=== PATIENT | male | born 1965 | race Caucasian/White ===

== ENCOUNTER 2016-07-03 05:45 | Day surgery (SDC) | payer BC, OTHER ==
[2016-07-03] MEDS ORDERED: Buffered Lidocaine 1% SYR 3ML* 3 ML/SYR SYRINGE INTRADERM ONE (06:00)
[2016-07-03] MEDS ORDERED: Dexamethasone IV* 4 MG/ML 1 ML (4 MG) IV SLOW PU ONE (06:00)
[2016-07-03] MEDS ORDERED: Famotidine IV* 10 MG/ML 2 ML (20 mg) IV ONE (06:00)
[2016-07-03] MEDS ORDERED: Dexamethasone IV* 4 MG/ML 1 ML (4 MG) ONE (06:20)
[2016-07-03] MEDS ORDERED: Famotidine IV* 10 MG/ML 2 ML (20 mg) ONE (06:20)
[2016-07-03] MEDS ORDERED: ceFAZolin 2 GM PREMIX (*) 2 GM/50 ML BAG IVPB ONE (06:20)
[2016-07-03] MEDS ORDERED: Atracurium* 10 MG/ML 10 ML VIAL ONE ×2 (06:29→07:15)
[2016-07-03] MEDS ORDERED: Succinylcholine* 20 MG/ML 10 ML VIAL ONE (06:29)
[2016-07-03] MEDS ORDERED: Bupivacaine 0.5% W/EPI SDV* 30 ML VIAL ONE (07:09)
[2016-07-03] MEDS ORDERED: EPINEPHrine AMP 1 MG/ML ONE (07:09)
[2016-07-03] MEDS ORDERED: fentaNYL* 50 MCG/ML 5 ML VIAL (250 MCG VIAL) ONE (07:14)
[2016-07-03] MEDS ORDERED: Ondansetron INJ* 2 MG/ML VIAL ONE (07:15)
[2016-07-03] MEDS ORDERED: Propofol* 10 MG/ML 20 ML BTL IV PUSH ONE (07:15)
[2016-07-03] MEDS ORDERED: ROPIVACAINE 5 MG/ML 30 ML BTL (0.5%) ONE (07:15)
[2016-07-03] MEDS ORDERED: Midazolam* 1 MG/ML 5 ML VIAL (5 MG) ONE (07:15)
[2016-07-03] MEDS ORDERED: Ketorolac INJ* 30 MG/ML 1 ML VIAL ONE (07:15)
[2016-07-03] MEDS ORDERED: fentaNYL* 50 MCG/ML 2 ML VIAL (100 MCG VIAL) ONE ×5 (08:08→12:12)
[2016-07-03] MEDS ORDERED: Desflurane* 240 ML INH ONE (08:42)
[2016-07-03] MEDS ORDERED: hydrALAZINE IV* 20 MG/ML VIAL ONE (09:02)
[2016-07-03] MEDS ORDERED: Metoprolol Tartrate IV* 1 MG/ML 5 ML VIAL ONE (09:02)
[2016-07-03] MEDS ORDERED: Levalbuterol HFA INHALER* 1 PUFF MDI ONE (09:03)
[2016-07-03] MEDS ORDERED: Phenylephrine INJ* 10 MG/ML 1 ML VIAL (10 MG) ONE (09:16)
[2016-07-03] MEDS ORDERED: Lidocaine 2% PF * 5 ML VIAL ONE (09:49)
[2016-07-03] MEDS ORDERED: DiMENhydriNATE IV* 50 MG/ML VIAL IV PUSH PRN (10:06)
[2016-07-03] MEDS ORDERED: Ondansetron INJ* 2 MG/ML VIAL IV PRN (10:06)
[2016-07-03] MEDS ORDERED: HYDROmorphone INJ* 1 MG/ML CARPUJECT SYRINGE IV PRN (10:06)
[2016-07-03] MEDS: fentaNYL* 50 MCG/ML 2 ML VIAL (100 MCG VIAL) IV PRN ×2 (12:13→12:32)
[2016-07-03] MEDS ORDERED: oxyCODONE/Acetamin 5/325 MG* TAB ONE ×2 (12:24)
[2016-07-03] MEDS: oxyCODONE/Acetamin 5/325 MG* TAB PO PRN ×2 (12:26→12:28)
[2016-07-03 13:53] VITALS: BP 146/95
--- NOTE | 2016-07-05 21:40 | OP ---
OPERATIVE NOTE: DATE OF OPERATION: 07/03/16 DATE OF : 69 SURGEON: Adrián Louis MD ELECTRIC MOTOR REPAIRMAN: ELSA Jessica ANESTHESIOLOGIST: Dr. Obi Tsang. ANESTHESIA: Regional anesthesia, general anesthesia, local anesthesia. PRE-OP DIAGNOSES: 1. Right chronic retracted full width and thickness subscapularis rotator cuff tendon repair. 2. Right shoulder chronically subluxed proximal biceps tendon. 3. Recent right AC joint sprain, subacromial bursitis. POST-OP DIAGNOSES: 1. Right chronic retracted full width and thickness subscapularis rotator cuff tendon repair. 2. Right shoulder chronically subluxed proximal biceps tendon. 3. Recent right AC joint sprain, subacromial bursitis. 4. Right shoulder capsulitis OPERATIVE PROCEDURES: 1. Right shoulder examination under anesthesia. 2. Right shoulder manipulation under anesthesia. 3. Open rotator cuff repair, chronic, retracted full thickness subscapularis. 4. Open proximal biceps tenodesis, right. 5. Right shoulder arthroscopic proximal biceps tendon release. 6. Right shoulder arthroscopic debridement, rotator interval tissue, subacromial bursitis tissue. 7. Right shoulder arthroscopic evaluation of AC joint and acromion. IV FLUIDS: See Anesthesia note. ANTIBIOSIS: 2 g Ancef IV. COMPLICATIONS: None. ESTIMATED BLOOD LOSS: Minimal. SPECIMEN: None. IMPLANTS: Mitek helix 4.5 mm double loaded suture anchors x3. Arthrex unicortical proximal biceps tenodesis button x1. 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 The patient was injured on 03/13/16 at work. He stepped on a grating, which collapsed underneath him. The patient fell down and his right shoulder was yanked into hyperabduction. The patient felt and heard a pop. He went to the emergency department because of significant pain and weakness in the right shoulder. He was unable to work because of this. When I first saw the patient in the office on April 30, he was in significant pain , barely able to move his shoulder in any direction, and describing significant stabbing anterior pain as though something were "rolling back and forth" along the front of his shoulder causing an occasional jolt of pain. The patient is a diabetic, who occasionally smokes cigars. The patient is on chronic narcotics for left upper extremity pain and dysesthesias secondary to an intramuscular shot of cortisone in the left upper arm. The patient takes Opana 30 mg twice a day and oxycodone 15 mg every 4 to 6 hours as needed for pain. At that first clinic visit, the patient was very angry discussing that left upper extremity complication. The patient at first had some neck and head pain that resolved mostly through our visits and was addressed by Dr. Sullivan. The patient's exam showed positive subacromial impingement signs. Significant pain and weakness with subscapularis strength testing. He had some pain, but no weakness with supraspinatus stress testing and no external rotator stress testing, pain or weakness. Positive Speeds. Positive Oceana's. Extreme tenderness to palpation of proximal biceps and AC joint minimal tenderness to palpation at the last clinic visit. Over his clinic visits with me, which were needed for the workers' compensation claim to be approved and for the patient to be prepared for surgery, the patient's neck exam normalized and he regained range of motion of the shoulder to 160 degrees forward flexion, 70 degrees of external, and 20 degrees of internal range of motion. MRA of the right shoulder showed a full thickness retracted subscapularis tear with significant subluxation of the biceps long head. There was also AC joint ligamentous injury to the superior and inferior aspect of the ligaments of the AC joint. AC joint narrowing and distal clavicle hypertrophy were visible on x-ray. The patient opted for surgical management. As the patient essentially had a low-grade AC joint sprain, I decided that my default would be not to do a distal clavicle resection and treat it as I would with an isolated low- grade AC joint sprain in the office. I decided that I would arthroscope the patient's shoulder in beach-chair position, determine if any other rotator cuff repairs were evident, confirmed the subscapularis rotator cuff tendon tear, and cut the biceps and do any necessary debridements prior to open repair of his chronic retracted tear. DESCRIPTION OF PROCEDURE: Preoperative written consent was obtained. Operative extremity was marked in preoperative holding. The patient was taken back to the operating room and placed supine on operating room table. Dr. Tsang performed a regional interscalene anesthetic block, right upper extremity. The patient was then intubated. The patient was placed into a beach -chair position. The back rest of the table was held back. Examination under anesthesia demonstrated only 140 degrees of passive forward flexion as well as less than 80 degrees of internal and external rotation. A manipulation under anesthesia was performed carefully, producing a few palpable pops and accomplishing 160 degrees of forward flexion, 90 degrees of external rotation and 70 degrees of internal rotation. The right shoulder was prepped and draped. Surgical time-out was performed. 20 cc of normal saline was injected with spinal needle into the posterior glenohumeral joint. Posterior glenohumeral joint portal was then established using standard technique. Diagnostic arthroscopy was commenced. No articular cartilage lesions on the glenoid or humeral head were appreciated. There was some fraying of the superior labrum, but no clear tear or tendinosis of the biceps tendon itself. However, the biceps tendon was significantly displaced medially. No infraspinatus or supraspinatus rotator cuff tear was evident. However, there was clearly evident a full width, full thickness subscapularis rotator cuff tendon tear with significant medial retraction. I established an anterior glenohumeral joint portal under direct visualization. A shaver was introduced. It was used to debride scar tissue in the rotator interval and free up on the posterior undersurface of the subscapularis rotator cuff tendon tear. I also debrided the superior labrum slightly. I then brought an arthroscopic scissors and cut the biceps near its origin. Scope and fluid were removed from the glenohumeral joint. I then entered the subacromial space from posterior and anterior. Lateral subacromial portal was established under direct visualization. I encountered much bursitic tissue in the subacromial space and debrided with an arthroscopic shaver. No clear subacromial decompression or distal clavicle resection was indicated because there were no clear inferior abutting bony prominences. Fluid and instruments were removed from the subacromial space. That concluded the arthroscopic component of the procedure. The 3 arthroscopy skin incisions were closed with figure-of-8 stitches using nylon 4-0 suture. A back rest was then placed on the posterior element of the table. Of note, the right arm was the whole case in a spider arm madrigal. Anterior deltopectoral approach was then marked. The skin from the level of the coracoid process to the level of the anterior humerus just proximal to the deltoid insertion laterally. Skin was incised with a #10 blade. I continued dissection through subcutaneous tissue with spreading dissection with scissors. I identified the deltopectoral interval with its fat stripe and cephalic vein. The cephalic vein wanted to go lateral. A small bridging vein was tied off with a suture and then Bovie to allow spreading of the deltopectoral interval. Conjoined tendon was visualized. Lateral to that was clavipectoral fascia well identified. The shoulder was fully abducted and digitally, the subdeltoid adhesions and subacromial adhesions were released. A brown deltoid retractor was placed. Scissors were used to incise the clavipectoral fascia and identified the underlying retracted subscapularis tendon tear. A traction stitch was placed, several of them in the subscapularis digitally and with spreading dissection, some adhesions were released from the subscapularis, posterior, anterior, and superior. A finger Baldwin appendix retractor was used at times around the lateral most aspect of the conjoined tendon superiorly, well far away from the musculocutaneous nerve. This pressure was light and was not constant and was not always there during the procedure. The entire uncovered footprint on the humerus of the subscapularis was identified. It was debrided with a rongeur and curette and a then alayna was used to get good prepared bone for the repair. Next, three Mitek helix double-loaded 4.5 mm anchors were placed, two of them more medial and one more superolateral taking up the full extent of the footprint. Horizontal mattress stitches were placed using a free needle in the sutures and the anchors. These were tied. The traction stitches were then tied to some fascia about the bicipital groove and the supraspinatus fascia just lateral to that. It should be noted that before this repair was effected, the biceps long head had been brought inferiorly in the wound. Repair was noted to be snug, but well fixed. It was a little bit loose around the medial inferior aspect, so that was supplemented with additional permanent stitches along the inferior aspect from the tendon to the bicipital groove fascia. I did not stress test this repair more than 10 degrees past the neutral rotation with the plan postoperatively for the patient not to go beyond neutral. The biceps tendon was then tenodesed in the bicipital groove just superior to the pectoralis tendon. This was done with an Arthrex proximal tenodesis unicortical button using standard technique. Irrigation. Closure of the deltopectoral interval with a running trail of Crumb's stitch using an Ethibond 0 suture. Closure of the subcutaneous tissue with Vicryl 3-0 suture buried simple stitches. Closure of the subcuticular layer with a running stitch using Monocryl 4- 0 suture. A Xeroform followed by 4x4s followed by Tegaderm were placed over the anterior incision. Xeroform followed by 4x4s followed by ABDs followed by foam tape were placed over the arthroscopic incisions and the open incisions. The patient was placed in a sling. An abduction pillow was added to this in the recovery room. The patient was sedated and extubated and brought to the PACU. DISPOSITION: The patient in addition to his routine pain medication regimen will take oxycodone for breakthrough pain, aspirin for DVT prophylaxis, and Keflex for 7 days for infection prophylaxis. The patient was given strict instructions without no external rotation of that shoulder beyond neutral. The patient is to be in the sling at all times except for once a day to come out and move his elbow, wrist, and fingers. I called the patient 2 days postoperatively to confirm that his pain was adequate and he was neurovascularly intact distally without any numbness or paresthesias and the ability present to flex the elbow. I will see the patient 10 to 14 days postoperatively. [id number]/[facility] #: [id number] [facility]ALS[facility]
== END 2016-07-03 13:49 | disposition home or self-care (01) ==
LOC: OR 05:45
PROVIDERS: ATTEND Orthopaedic Surgery
DX: M75.121 Complete rotator cuff tear or rupture of right shoulder, not specified as traumatic (principal); M67.813 Other specified disorders of tendon, right shoulder; M75.01 Adhesive capsulitis of right shoulder; E11.8 Type 2 diabetes mellitus with unspecified complications; Z79.84 Long term (current) use of oral hypoglycemic drugs
CPT/HCPCS: A9270-GY; C1776; J0171; J0330; J0360; J0690; J1100; J1885; J2250; J2405; J2704; J2795; J3010; J3490

== ENCOUNTER 2019-05-09 09:31 | Day surgery (SDC) | payer BC ==
[~2019-05-09 09:31] MED LIST: Acetaminophen TAB* 325 MG PO PRN; Buffered Lidocaine 1% SYRIN* 1 ML/SYRINGE INTRADERM ONE; Trypan Blue 0.06% SOL* 0.5 ML BTL ONE
[2019-05-09] MEDS ORDERED: fentaNYL* 50 MCG/ML 2 ML VIAL (100 MCG VIAL) ONE ×2 (09:53→16:22)
[2019-05-09] MEDS ORDERED: Midazolam* 1 MG/ML 5 ML VIAL (5 MG) ONE ×2 (09:53→16:22)
[2019-05-09 11:14] VITALS: BP 114/69
[2019-05-09] MEDS ORDERED: KETAMINE HCL* 50 MG/ML 10 ML VIAL ONE (16:22)
[2019-05-09] MEDS ORDERED: Acetaminophen IV 1GM/100ML * 100 ML ONE (19:22)
[2019-05-09] MEDS ORDERED: Propofol* 500 MG/50 ML BTL ONE (19:22)
[2019-05-09] MEDS ORDERED: Lidocaine 2% PF * 5 ML VIAL ONE (19:23)
[2019-05-09] MEDS ORDERED: Ketorolac INJ* 30 MG/ML 1 ML VIAL ONE (19:23)
--- NOTE | 2019-05-09 21:37 | OP ---
DATE OF OPERATION: 05/09/19 [facility] DATE OF : 69 SURGEON: Dr. Praveen Thomason COMPLIANCE ENGINEER PRODUCTS: None. ANESTHESIA: Topical with intravenous sedation. PRE-OP DIAGNOSIS: Cataract, right eye. POST-OP DIAGNOSIS: Cataract, right eye. OPERATIVE PROCEDURE: Phacoemulsification and cataract extraction with posterior chamber intraocular lens implant, right eye. COMPLICATIONS: None. BLOOD LOSS: None. DESCRIPTION OF PROCEDURE: The patient was brought to the operating room and received a small amount of intravenous sedation. A drop of Tetracaine was placed in the patient's right eye. The patient was prepped and draped in the usual sterile fashion for ophthalmic surgery and attention was directed to the right eye where a speculum was placed. A paracentesis was created at the 11 o' clock position and 0.1 cc of 1 percent preservative-free Lidocaine was injected into the anterior chamber followed by DisCoVisc. The eye was digitally stabilized while a 2.75 mm keratome was used to create a triplanar clear corneal incision at the 9 o'clock position. A continuous curvilinear capsulorrhexis was created with a cystotome and Utrata forceps. BSS on a cannula was used to hydrodissect the lens from the capsule. Phacoemulsification was performed in a acafjr-ygy-[id number] technique to create four fragments which were removed. Residual cortical material was removed with irrigation and aspiration. DisCoVisc was used to inflate the capsular bag and an AU00T0 23.0 diopter lens was folded and inserted into the capsular bag. DisCoVisc was removed using irrigation and aspiration. BSS on a cannula was used to hydrate the corneal stroma and seal the wound. At the end of the case the pupil was round and the lens was centered. The eye was of normal pressure and the wound was water tight. The speculum was removed and topical Maxitrol ointment was placed on the surface of the eye. The eye was closed, patched and shielded and the patient was sent to the recovery room in stable condition with post operative instructions and follow-up appointment given. [id number]/[facility] #: [id number] TARA
== END 2019-05-09 11:03 | disposition home or self-care (01) ==
LOC: OREAST 09:31
PROVIDERS: ATTEND Ophthalmology
DX: H25.041 Posterior subcapsular polar age-related cataract, right eye (principal); E11.9 Type 2 diabetes mellitus without complications; Z79.4 Long term (current) use of insulin; Z79.84 Long term (current) use of oral hypoglycemic drugs; I10 Essential (primary) hypertension
CPT/HCPCS: J1885; J2250; J2704; J3010; V2632

== ENCOUNTER 2019-05-30 06:18 | Day surgery (SDC) | payer BC ==
[~2019-05-30 06:18] MED LIST changes: -Trypan Blue 0.06% SOL* 0.5 ML BTL ONE
[2019-05-30] MEDS ORDERED: fentaNYL* 50 MCG/ML 2 ML VIAL (100 MCG VIAL) ONE (07:17)
[2019-05-30] MEDS ORDERED: Midazolam* 1 MG/ML 5 ML VIAL (5 MG) ONE (07:17)
[2019-05-30] MEDS ORDERED: Ketorolac 0.5% OPHTH (NF) 0.5 % 5 ML BTL ONE (07:51)
[2019-05-30] MEDS ORDERED: Lidocaine 1% MPF ** 5 ML VIAL ONE (07:51)
[2019-05-30] MEDS ORDERED: Cyclopentolate 1% OPTH.SOL* 2 ML BTL ONE (07:51)
[2019-05-30] MEDS ORDERED: Tropicamide 1% OPTH.SOL* BTL ONE (07:51)
[2019-05-30] MEDS ORDERED: Phenylephrine OPHTH SOL 2.5%* 2 ML ONE (07:51)
[2019-05-30] MEDS ORDERED: Neomycin/Polymy/Dex OPHTH.OIN* 3.5 GM ONE (07:51)
[2019-05-30] MEDS ORDERED: Tetracaine 0.5% OPTH.SOL 4 ML* 1 DROP BTL ONE (07:51)
[2019-05-30] MEDS ORDERED: Midazolam* 1 MG/ML 2 ML VIAL (2 MG) ONE (07:59)
[2019-05-30 08:38] VITALS: BP 133/72
--- NOTE | 2019-05-30 10:26 | OP ---
DATE OF OPERATION: 05/30/19 - [facility] DATE OF : 69 SURGEON: Praveen Thomason MD BINDER SORTER: None. ANESTHESIA: Topical with intravenous sedation. PRE-OP DIAGNOSIS: Dense cataract small pupil left eye. POST-OP DIAGNOSIS: Dense cataract small pupil left eye. OPERATIVE PROCEDURE: Phacoemulsification and cataract extraction with posterior chamber intraocular lens implant and anterior vitrectomy left eye. COMPLICATIONS: Capsular tear. BLOOD LOSS: None. DESCRIPTION OF PROCEDURE: The patient was brought to the operating room and received intravenous sedation. A drop of Tetracaine was placed into the patient 's left eye. The patient was prepped and draped in the usual sterile fashion for ophthalmic surgery and attention was directed to the left eye where a speculum was placed. The pupil was noted to be approximately 4.5 mm in diameter , so Omidria was added tot the irrigating solution. A paracentesis was created at the 5 o'clock position and 0.1 cc of 1% preservative-free lidocaine was injected via anterior chamber followed by DisCoVisc. The eye was digitally stabilized with 2.75 mm keratome was used to create a triplanar clear corneal incision at the 3 o'clock position. A continuous curvilinear capsulorrhexis was created with a cystotome and Utrata forceps. Using Viscoat dilation we were able to achieve a rhexis of approximately 5 mm in diameter. BSS on a cannula was used to hydrodissect the lens from the capsule. Phacoemulsification was performed in a divide and conquer technique to remove to create 4 fragments, which were removed. It was noted that a significant capsular tear had occurred in the nasal aspect of the posterior capsule. Fortunately, there was no cortical material to remove as this cataract was quite dense. DisCoVisc was used to tamponade, the vitreous and instruments were drawn from the eye. A second paracentesis was created at the 1 o'clock position. A bimanual anterior vitrectomy instrument was inserted into the anterior chamber and a vitrectomy was performed to remove any possible vitreous that had come through the capsular tear and along the base of the capsular tear. Once satisfied that there was no vitreous present, the vitrector was removed and more DisCoVisc was placed into the eye. It was felt that the posterior capsule had an opening too large to safely support a posterior chamber ocular lens. Thus an MC60AC 3-piece lens, 23 diopters in power, was chosen. This lens was folded outside the eye and atraumatically placed through the wound into the sulcus. The trailing haptic was gently dialed into the sulcus as well. At this point, the bimanual vitrector was replaced into the eye and one aspect of it was placed posterior through lens. Vitrectomy was performed to remove viscoelastic posterior lens. The vitrector was then placed anterior to the lens and irrigation and aspiration was performed to remove viscoelastic from the eye. The vitrector was removed. BSS on a cannula was used to hydrate the 3 corneal wounds. The intraocular pressure at the end of the case appeared normal and the wound was water tight. There was clearly no vitreous located anterior to the lens. The lens was centered and stable in the sulcus. The pupil was round measuring approximately 5 mm at this point. The speculum was removed and topical Maxitrol ointment was placed in the surface of the eye. Eye was closed, patched, and shielded and the patient was sent to recovery room in stable condition with postop instructions and followup appointment given and oral Diamox was administered in recovery room as well. [id number]/[facility] #: [id number] TARA
[2019-05-30] MEDS ORDERED: Phenylephr/Ketorolac 1%/0.3% OPH DROP BTL ONE (11:39)
== END 2019-05-30 08:32 | disposition home or self-care (01) ==
LOC: OREAST 06:18
PROVIDERS: ATTEND Ophthalmology
DX: H25.042 Posterior subcapsular polar age-related cataract, left eye (principal); H21.561 Pupillary abnormality, right eye; H59.212 Accidental puncture and laceration of left eye and adnexa during an ophthalmic procedure; E11.9 Type 2 diabetes mellitus without complications; Z79.4 Long term (current) use of insulin; Z79.84 Long term (current) use of oral hypoglycemic drugs; I10 Essential (primary) hypertension; E78.2 Mixed hyperlipidemia; Y69 Unspecified misadventure during surgical and medical care; Y92.234 Operating room of hospital as the place of occurrence of the external cause
CPT/HCPCS: A9270-GY; J1097; J2250; J3010; V2632

== ENCOUNTER 2023-09-24 06:43 | Observation (INO) ==
[2023-09-24 08:12] LABS: ABS Eosinophils 0.1 10^3/uL (0.0-0.5); ABS Lymphocytes 1.1 10^3/uL (1.0-4.8); ABS Monocytes 0.4 10^3/uL (0.0-1.1); ABS Neutrophils 5.5 10^3/uL (1.5-7.6); ABS Nucleated RBC 0.02 10^3/ul; Eosinophil % 0.8 %; Hematocrit 50.8 % (38-53); Hemoglobin 17.6 g/dL (13.2-16.3); Lymphocyte % 16.1 %; Mean Corpuscular Hemoglobin 31.6 pg (27-33); Mean Corpuscular Hgb Conc 34.6 g/dL (31-36); Mean Corpuscular Volume 91.2 fL (80-97); Mean Platelet Volume 8.5 fL (7.5-11.2); Nucleated Red Blood Cells % 0.3 %/100WBC (0.0-0.8); Platelet Count 268 10^3/uL (150-450); Red Blood Count 5.57 10^6/uL (4.06-5.63); Red Cell Distribution Width 13.5 % (12-17); White Blood Count 7.1 10^3/uL (3.6-10.2)
[2023-09-24] MEDS: Lactated Ringers 1000 ml BAG 1,000 ML IV ONE (08:38)
[2023-09-24 08:56] LABS: Albumin 4.6 g/dL (3.2-5.2); Albumin/Globulin Ratio 1.5 (1-3); C Reactive Protein 9.65 mg/L (<8.01); Calcium 9.6 mg/dL (8.6-10.3); Creatinine, Serum 0.88 mg/dL (0.67-1.17); Magnesium 1.8 mg/dL (1.9-2.7); Phosphorus 2.9 mg/dL (2.5-5.0); Potassium 4.8 mmol/L (3.5-5.0); Total Bilirubin 0.9 mg/dL (0.2-1.0); Total Protein 7.6 g/dL (6.4-8.9); eGFR CKD-EPI 100.9 (>60)
[2023-09-24 09:33] LABS: High Sensitivity Troponin 1 Hr < 3 pg/mL (<20)
[2023-09-24] MEDS: Iodixanol (CONTRAST) 320 MG/ML 100 ML SDV IV ONE (10:52)
[2023-09-24 11:41] LABS: Urine Appearance Clear; Urine Bacteria Absent /HPF (Absent); Urine Bilirubin Negative (Negative); Urine Blood Negative (Negative); Urine Color Light-Yellow; Urine Glucose 4+ (>=1000 mg/dL) (Negative); Urine Ketones 1+ (Negative); Urine Nitrite Negative (Negative); Urine Protein 1+ (>=30 mg/dL) (Negative); Urine Red Blood Cell Absent /HPF (0-Trace); Urine Urobilinogen Negative (Negative); Urine White Blood Cell Trace(0-5/hpf) /HPF (0-Trace); Urine pH 5.5 (5.0-8.0)
[2023-09-24 13:20] LABS: HDL Cholesterol 34.9 mg/dL
[2023-09-24 13:32] LABS: TSH Ultra Thyroid Stim Horm 1.3 mcIU/mL (0.34-5.60)
[2023-09-24] MEDS: Magnesium Sulfate 2 gm BAG 2 GM/50 ML BAG IVPB ONE (14:07)
[2023-09-24] MEDS ORDERED: Dextrose 50% Syringe 50 ml 25 GM/50 ML SYRINGE IV PUSH PRN (14:35)
[2023-09-24] MEDS: Enoxaparin 40 MG/0.4 ML SYR SUBCUT SCH (16:04)
[2023-09-24] MEDS ORDERED: Enoxaparin 40 MG/0.4 ML SYR SUBCUT SCH (21:00)
[2023-09-25 06:12] LABS: ABS Basophils 0.1 10^3/uL (0.0-0.1); ABS Eosinophils 0.2 10^3/uL (0.0-0.5); ABS Lymphocytes 2.5 10^3/uL (1.0-4.8); ABS Monocytes 0.7 10^3/uL (0.0-1.1); ABS Neutrophils 4.5 10^3/uL (1.5-7.6); ABS Nucleated RBC 0.01 10^3/ul; Hematocrit 47.5 % (38-53); Hemoglobin 16.8 g/dL (13.2-16.3); Lymphocyte % 31.9 %; Mean Corpuscular Hemoglobin 31.7 pg (27-33); Mean Corpuscular Hgb Conc 35.4 g/dL (31-36); Mean Corpuscular Volume 89.5 fL (80-97); Mean Platelet Volume 8.1 fL (7.5-11.2); Nucleated Red Blood Cells % 0.1 %/100WBC (0.0-0.8); Platelet Count 247 10^3/uL (150-450); Red Blood Count 5.31 10^6/uL (4.06-5.63); Red Cell Distribution Width 13.5 % (12-17); White Blood Count 7.9 10^3/uL (3.6-10.2)
[2023-09-25 06:52] LABS: Calcium 9.5 mg/dL (8.6-10.3); Creatinine, Serum 0.78 mg/dL (0.67-1.17); Magnesium 1.7 mg/dL (1.9-2.7); Potassium 4.2 mmol/L (3.5-5.0); eGFR CKD-EPI 104.7 (>60)
[2023-09-25] MEDS: Insulin GLARGINE 100 un/ml 10 ml VIAL SUBCUT SCH (08:47)
[2023-09-25] MEDS: Aspirin EC 81 mg TAB.EC (enteric coated) PO SCH (08:47)
[2023-09-25] MEDS: Magnesium Sulfate 2 gm BAG 2 GM/50 ML BAG IVPB ONE (08:58)
[2023-09-25] MEDS: Magnesium Sulfate IV 1GM/100ML 1 GM/100 ML BAG IV ONE (11:17)
[2023-09-25 13:47] VITALS: BP 163/81
== END 2023-09-25 16:00 | disposition home or self-care (01) ==
LOC: EDHOLD 06:43 → ED 06:43 → MED 15:44
PROVIDERS: ADMIT Student in an Organized Health Care Education/Training Program; ATTEND Student in an Organized Health Care Education/Training Program

== ENCOUNTER 2023-11-11 19:51 | Inpatient (IN) ==
[2023-11-12 00:13] LABS: ABS Basophils 0.1 10^3/uL (0.0-0.1); ABS Eosinophils 0.2 10^3/uL (0.0-0.5); ABS Lymphocytes 3.1 10^3/uL (1.0-4.8); ABS Monocytes 1.4 10^3/uL (0.0-1.1); ABS Neutrophils 6.9 10^3/uL (1.5-7.6); Eosinophil % 1.3 %; Hematocrit 45.4 % (38-53); Hemoglobin 15.3 g/dL (13.2-16.3); Lymphocyte % 26.7 %; Mean Corpuscular Hemoglobin 30.6 pg (27-33); Mean Corpuscular Hgb Conc 33.7 g/dL (31-36); Mean Corpuscular Volume 90.9 fL (80-97); Mean Platelet Volume 8.8 fL (7.5-11.2); Platelet Count 227 10^3/uL (150-450); Red Cell Distribution Width 13.2 % (12-17); White Blood Count 11.8 10^3/uL (3.6-10.2)
[2023-11-12] MEDS: Clindamycin 600 MG/D5W BAG 600 MG/50 ML BAG IV ONE (00:38)
[2023-11-12 00:40] LABS: Albumin 4.8 g/dL (3.2-5.2); Albumin/Globulin Ratio 1.6 (1-3); C Reactive Protein 32.01 mg/L (<8.01); Potassium 4.3 mmol/L (3.5-5.0); Total Bilirubin 0.8 mg/dL (0.2-1.0); Total Protein 7.8 g/dL (6.4-8.9); eGFR CKD-EPI 88.3 (>60)
[2023-11-12] MEDS ORDERED: Dextrose 50% Syringe 50 ml 25 GM/50 ML SYRINGE IV PUSH PRN (04:14)
[2023-11-12] MEDS: Lactated Ringers 1000 ml BAG 1,000 ML IV ONE (05:10)
[2023-11-12] MEDS ORDERED: Zosyn per Pharmacy NOTE FOLLOW UP SCH (06:00)
[2023-11-12] MEDS ORDERED: Vancomycin per Pharmacy 1 EA NOTE FOLLOW UP SCH (06:00)
[2023-11-12] MEDS: Vancomycin 1,000 MG in NS 0.9% 250 ml 250 ML IVPB ONE ×2 (06:35→09:51)
[2023-11-12] MEDS: Piperacillin/Tazobac 3.375 BAG 3.375 GM/100 ML BAG IV ONE (06:35)
[2023-11-12] MEDS: Cefepime 1 GM in Dextrose 1 GM/50 ML BAG IV SCH (06:42)
[2023-11-12] MEDS: Aspirin EC 81 mg TAB.EC (enteric coated) PO SCH (07:41)
[2023-11-12 08:06] LABS: ABS Basophils 0.1 10^3/uL (0.0-0.1); ABS Eosinophils 0.2 10^3/uL (0.0-0.5); ABS Lymphocytes 2.1 10^3/uL (1.0-4.8); ABS Neutrophils 4.7 10^3/uL (1.5-7.6); ABS Nucleated RBC 0.01 10^3/ul; Hemoglobin 15.4 g/dL (13.2-16.3); Lymphocyte % 25.9 %; Mean Corpuscular Hemoglobin 30.8 pg (27-33); Mean Corpuscular Hgb Conc 34.2 g/dL (31-36); Mean Corpuscular Volume 90.1 fL (80-97); Mean Platelet Volume 8.5 fL (7.5-11.2); Nucleated Red Blood Cells % 0.1 %/100WBC (0.0-0.8); Platelet Count 209 10^3/uL (150-450); Red Blood Count 4.99 10^6/uL (4.06-5.63); Red Cell Distribution Width 13.4 % (12-17); White Blood Count 8.1 10^3/uL (3.6-10.2)
[2023-11-12 08:13] VITALS: BP 120/66
[2023-11-12 08:50] LABS: Calcium 9.2 mg/dL (8.6-10.3); Creatinine, Serum 0.84 mg/dL (0.67-1.17); Magnesium 1.9 mg/dL (1.9-2.7); Potassium 4.6 mmol/L (3.5-5.0); eGFR CKD-EPI 102.3 (>60)
[2023-11-12] MEDS ORDERED: NF: Metformin ER 750 mg TAB (NF) PO SCH (09:00)
[2023-11-12] MEDS: Insulin GLARGINE 100 un/ml 10 ml VIAL SUBCUT SCH (09:50)
[2023-11-12 11:38] LABS: Osmolality Serum 295 mOsm/kg (275-295)
[2023-11-12] MEDS ORDERED: Vancomycin 1,000 MG in NS 0.9% 250 ml 250 ML IVPB SCH (13:00)
[2023-11-12] MEDS ORDERED: cefTRIAXone 1 gm/50 mL D5W 1 GM/50 ML BAG IV SCH (18:00)
[2023-11-12] MEDS ORDERED: Vancomycin 1,250 MG in NS 0.9% 250 ml 250 ML IVPB SCH (21:00)
[2023-11-14] MEDS ORDERED: Vancomycin Trough Check NOTE FOLLOW UP ONE (08:30)
== END 2023-11-12 14:42 | disposition left against medical advice (07) | DRG 344 ==
LOC: ED 19:51 → SUATTDRO 11-12 03:35 → EDHOLD 11-12 03:35 → MED 11-12 14:11 → EDHOLD 11-12 14:33
PROVIDERS: ADMIT Internal Medicine; ATTEND Hospitalist